=== PATIENT | female | born 2000 | race Caucasian/White ===

== ENCOUNTER 2021-04-11 11:33 | Emergency (ER) | payer OTHER, SELFPAY ==
--- NOTE | 2021-04-11 11:41 | ED.URI ---
HPI - URI/Sore Throat General Chief Complaint: Upper Respiratory Infection Stated Complaint: aches congestion sore throat Time Seen by Provider: 04/11/21 11:41 Source: patient and RN notes reviewed History of Present Illness HPI Narrative: Patient is a 20-year-old female who presents the urgent care with complaints of body aches, congestion, sore throat and fever. Patient states her symptoms started last and she has been using Tylenol/ibuprofen and [id number] antihistamine for symptom relief. Patient did have a positive Covid exposure early last week. States that she had a negative rapid test on Saturday with only 1 day in the symptoms. Patient also reports of some chest tightness on exertion. No other acute complaints. No acute distress noted. Patient aware of plan of care. Some parts of this dictation were generated by voice recognition software and may contain typographical and/or grammatical inaccuracies. Related Data Home Medications Medication Instructions Recorded Confirmed No Home Medications 04/11/21 04/11/21 Allergies Allergy/AdvReac Type Severity Reaction Status Date / Time Bleach (Sodium Hypochlorite) Allergy Unknown Hives Verified 07/10/18 11:00 Review of Systems Review of Systems: CONSTITUTIONAL: Reports a fever EYES: Denies visual changes, redness, or discharge. ENT: Reports of sore throat, rhinorrhea, postnasal drainage and congestion CARDIOVASCULAR: Denies chest pain, palpitations, or edema. RESPIRATORY: Reports of cough, dyspnea to GASTROINTESTINAL: Denies abdominal pain, nausea, vomiting, or diarrhea. GENITOURINARY: Denies dysuria or hematuria. SKIN: Denies rash or itching. MUSCULOSKELETAL: Denies back pain, joint pain. Reports of body aches NEUROLOGIC: Denies headache, numbness, or weakness. All other systems reviewed are negative, except as documented in HPI. PMFSH Social History Social History Smoking status: Never smoker Second hand tobacco smoke exposure: No Alcohol intake: never Comments At the time of my signature, I reviewed and agree with the nursing past medical, surgical, social, and family history. There is no relevant family history pertinent to the patient complaint. Exam Narrative: GENERAL: This is a well-nourished, well-developed patient, in no apparent distress. HEAD: normocephalic, atraumatic. EYES: PERRL. Sclera clear/white. Vision is grossly intact. EARS: External ears normal, auditory canals clear and without drainage, TMs normal without perforation. Hearing grossly intact. NOSE: External nose normal with no obvious nasal discharge, nares without redness. clear to yellow rhinorrhea THROAT: Mucous membranes moist, posterior pharynx clear. Moderate postnasal drainage NECK: Neck supple CARDIOVASCULAR: Regular rate and rhythm without murmurs, gallops, or rubs. RESPIRATORY: Clear to auscultation. Breath sounds equal bilaterally. No wheezes, rales, or rhonchi. SKIN: warm, intact with no suspicious lesions or rash, good texture and turgor. NEURO: awake, alert, and oriented to person, place and time. There were no obvious focal neurologic abnormalities. EXTREMITIES: No clubbing, cyanosis, or edema Course Course Level of Care: Express Care Visit Vital Signs Vital signs: Vital Signs Temperature 99.0 F 04/11/21 11:42 Pulse Rate 68 04/11/21 11:42 Respiratory Rate 16 04/11/21 11:42 Blood Pressure 104/65 04/11/21 11:42 Pulse Oximetry 100 04/11/21 11:42 Temperature 99.0 F 04/11/21 11:42 Pulse Rate 68 04/11/21 11:42 Respiratory Rate 16 04/11/21 11:42 Blood Pressure 104/65 04/11/21 11:42 Pulse Oximetry 100 04/11/21 11:42 Reviewed MDM - URI/Sore Throat MDM Narrative Medical decision making narrative: Reviewed lab results with the patient. She is aware that flu swab was negative. Rapid Covid test was positive. You need to follow your workplace/CDC guidelines on when to quarantine and time periods. Use [id number]
[2021-04-11 11:42] VITALS: BP 104/65; PULSE 68; RESP 16; TEMP 37.2; O2SAT 100
== END 2021-04-11 12:17 | disposition home or self-care (01) ==
PROVIDERS: Emergency Provider Nurse Practitioner Family; PCP Family Medicine
DX: U07.1 COVID-19 (principal)
CPT/HCPCS: 87426; 99213; C9803; G0463